=== PATIENT | male | born 1955 | race Caucasian/White ===

== ENCOUNTER 2024-07-09 17:13 | Emergency (ER) | payer MEDICARE, OTHER, SELFPAY ==
[2024-07-09 17:18] VITALS: BP 129/79
[2024-07-09 18:03] LABS: Hematocrit 39.2 % (39.0-52.0); Hemoglobin 13.5 g/dL (13.0-18.0); Mean Corp Hgb Conc. 34.4 g/dL (33.0-37.0); Mean Corpuscular Hgb 32.1 pg (27.0-31.0); Mean Corpuscular Volume 93.3 fL (80.0-94.0); Mean Platelet Volume 8.7 fL (7.4-10.4); Platelet Count 183 10^3/uL (130-400); Red Cell Dist. Width 12.5 % (11.5-14.5); White Blood Cell Count 8.4 10^3/uL (4.8-10.8)
--- NOTE | 2024-07-09 18:06 | ED.GENMED ---
History of Present Illness
<Tahmina Smith PA-C - Last Filed: 07/10/24 10:09>
General
Chief Complaint: Breathing Problem
Source: patient
Exam Limitations: none
Time Seen by Provider: 07/09/24 17:54
Nursing documentation reviewed up to this point in time: agreed with
History of Present Illness
History of Present Illness:
Patient is a 69 year old male with hx HTN, GERD, hypothyroid presenting to the emergency department for evaluation of shortness of breath. Patient reports fatigue, increased work of breathing, cough, low-grade fevers over the past week. Patient
reports mild sputum production of white/yellow in color. No hemoptysis. Also reports hoarseness. Patient denies night sweats, as well. No chest pain.
Patient reports somewhat chronic cough, shortness of breath over the past 1 to 2 years which he has been seen by [facility]. The symptoms have mainly been attributed to hypersensitivity to some fungus. Most recently�he did have a
bronchoscopy 6 days ago due to mild worsening in symptoms. He was started on a course of Augmentin to take over the past 6 days without improvement in symptoms. Negative AFB. Patient on chronic steroids for the past few months - currently tapering
and on low dose. Patient scheduled to f/u new pulmonology/ID at end of July. He did have recent increase in Advair inhaler strength.
No sick contacts.
Past History
<Tahmina Smith PA-C - Last Filed: 07/10/24 10:09>
Past History
ED Past Medical History: Asthma and GERD
ED Past Surgical History: Other
Social History
Tobacco: Non-smoker
Alcohol: Occasional
Drug: None
Personal:
Living: with family
Employment: Employed
Review of Systems
<Tahmina Smith PA-C - Last Filed: 07/10/24 10:09>
Review of Systems
Allergies reviewed?: Yes
All Other Systems: ROS reviewed and negative except as documented in HPI and ROS
Phy Exam
<Tahmina Smith PA-C - Last Filed: 07/10/24 10:09>
Physical Exam
Physical Exam:
Vitals: Patient's vital signs are stable. Afebrile
General: Patient is in no acute distress
Skin: Warm and dry, no rashes or lesions
Head: Normocephalic, atraumatic
Eyes: Sclera nonicteric. EOMs intact. No nystagmus.
Throat: Protecting airway
Neck: Normal ROM, no cervical spine tenderness, no meningismus
Cardiac: Regular rate and rhythm, no murmurs.
Pulm: Normal respiratory effort. O2 saturation 94 on room air. Scattered rhonchi of left lung. No wheezing.
Abdomen: Abdomen soft. No abdominal tenderness.
Extremities: No evidence of cyanosis or edema. Palpable DP pulses. Negative Homans' sign bilaterally
Neuro: AAOx3. Grossly intact.
Psychiatric: Normal affect.
Scores
<Tahmina Smith PA-C - Last Filed: 07/10/24 10:09>
Heart Failure Risk
Heart Failure Risk Score: Not Applicable
Course
<Tahmina Smith PA-C - Last Filed: 07/10/24 10:09>
Orders/Labs/Results
Orders:
Orders
07/09/24 17:21
Electrocardiogram (*1) Urgent
Reason for Study: Shortness of Breath
EKG- Treatment ONCE
07/09/24 17:32
CMP [Comprehensive Metabolic Panel] Urgent
COVID-19 Antigen Urgent
Source: Nasal Swab
Complete Blood Count/With Diff Urgent
Influenza A+B Rapid Molecular Urgent
MELINDA Source: Nasal Swab
Specimen Description:
07/09/24 18:26
Acetaminophen [Tylenol] 650 mg PO NOW STA
Potassium Chloride [KCl] 40 meq PO NOW STA
07/09/24 18:27
CR Chest - 2 Views Urgent
Comment:
Reason For Exam: SOB, cough, fevers
07/09/24 19:[address] [CT Chest With Iv Contrast] Urgent
Comment: recent bronchoscopy
Reason For Exam: SOB, fevers, cough
0.9% Sodium Chloride 1000 ml [Nss] 1,000 ml IV BOLUS
07/09/24 20:53
Dexamethasone Sod Phosphate [Decadron] 10 mg IV NOW STA
Ipratropium/Albuterol Sulfate [Duoneb] 3 ml INH R NOW STA
Abnormal Lab Results
07/09/24
17:32
RBC 4.20 L 10^6/uL
(4.70-6.10)
MCH 32.1 H pg
(27.0-31.0)
Abs Immat Gran (auto) 0.5 H 10^3/uL
(0-0.05)
Absolute Monos (auto) 0.9 H 10^3/uL
(0.1-0.6)
Immature Gran % 6.3 H %
(0-0.5)
Monocytes % 10.8 H %
(1.7-9.3)
Sodium 132 L mmol/L
(135-145)
Potassium 3.0 L mmol/L
(3.5-5.1)
Chloride 95 L mmol/L
(98-107)
Glucose 138 H mg/dl
(70-99)
ALT 76 H U/L
(0-50)
Total Protein 6.1 L g/dl
(6.3-8.2)
07/09/24 17:32
07/09/24 17:32
Vital Signs
Initial and Last Documented VS:
Initial Vital Signs
Temp Pulse Resp BP Pulse Ox
99.0 F 86 18 129/79 96
07/09/24 17:18 07/09/24 17:18 07/09/24 17:18 07/09/24 17:18 07/09/24 17:18
Last Documented Vital Signs
Temp Pulse Resp BP Pulse Ox
98.2 F 73 20 145/78 95
07/09/24 22:50 07/09/24 22:50 07/09/24 22:50 07/09/24 22:50 07/09/24 22:50
<Alan Mccauley MD - Last Filed: 07/10/24 18:59>
Orders/Labs/Results
Orders:
Orders
07/09/24 17:21
Electrocardiogram (*1) Urgent
Reason for Study: Shortness of Breath
EKG- Treatment ONCE
07/09/24 17:32
CMP [Comprehensive Metabolic Panel] Urgent
COVID-19 Antigen Urgent
Source: Nasal Swab
Complete Blood Count/With Diff Urgent
Influenza A+B Rapid Molecular Urgent
MELINDA Source: Nasal Swab
Specimen Description:
07/09/24 18:26
Acetaminophen [Tylenol] 650 mg PO NOW STA
Potassium Chloride [KCl] 40 meq PO NOW STA
07/09/24 18:27
CR Chest - 2 Views Urgent
Comment:
Reason For Exam: SOB, cough, fevers
07/09/24 19:[address] [CT Chest With Iv Contrast] Urgent
Comment: recent bronchoscopy
Reason For Exam: SOB, fevers, cough
0.9% Sodium Chloride 1000 ml [Nss] 1,000 ml IV BOLUS
07/09/24 20:53
Dexamethasone Sod Phosphate [Decadron] 10 mg IV NOW STA
Ipratropium/Albuterol Sulfate [Duoneb] 3 ml INH R NOW STA
Abnormal Lab Results
12/09/24
17:32
RBC 4.20 L 10^6/uL
(4.70-6.10)
MCH 32.1 H pg
(27.0-31.0)
Abs Immat Gran (auto) 0.5 H 10^3/uL
(0-0.05)
Absolute Monos (auto) 0.9 H 10^3/uL
(0.1-0.6)
Immature Gran % 6.3 H %
(0-0.5)
Monocytes % 10.8 H %
(1.7-9.3)
Sodium 132 L mmol/L
(135-145)
Potassium 3.0 L mmol/L
(3.5-5.1)
Chloride 95 L mmol/L
(98-107)
Glucose 138 H mg/dl
(70-99)
ALT 76 H U/L
(0-50)
Total Protein 6.1 L g/dl
(6.3-8.2)
07/09/24 17:32
07/09/24 17:32
Vital Signs
Initial and Last Documented VS:
Initial Vital Signs
Temp Pulse Resp BP Pulse Ox
99.0 F 86 18 129/79 96
07/09/24 17:18 07/09/24 17:18 07/09/24 17:18 07/09/24 17:18 07/09/24 17:18
Last Documented Vital Signs
Temp Pulse Resp BP Pulse Ox
98.2 F 73 20 145/78 95
07/09/24 22:50 07/09/24 22:50 07/09/24 22:50 07/09/24 22:50 07/09/24 22:50
<Tahmina Smith PA-C - Last Filed: 07/10/24 10:09>
MDM/Problems Addressed
Differential Diagnosis Includes:
Not limited to: bronchitis, pneumonia, pneumonitis, asthma exacerbation, pulmonary hemorrhage, doubt PE, etc
MDM/Problems Addressed:
69 year old male presenting with shortness of breath, fatigue, and fevers worsening over the past 6 days following bronchoscopy. Minimal productive cough. No hemoptysis or chest pain. Patient has stable vital signs. Temp of 99.0F. On exam�patient
is relatively well-appearing. O2 saturation is 95% on room air. He has some rhonchi on left side without any wheeze. He is in no apparent respiratory distress. Heart regular rate and rhythm. No lower extremity edema. No clinical evidence of
DVT. Basic labs were initiated in triage and reviewed. No leukocytosis. He was found to be hypokalemic with a potassium of 3.0. I suspect this likely to be secondary to his albuterol. Otherwise no clinically significant abnormalities. Viral
swabs are negative. Differential broad at this time although history of fever and night sweats concern for possible infectious source including bronchitis versus pneumonia. Do not suspect PE. Chest x-ray was obtained without any acute
abnormalities. Given significant pulmonary history and recent bronchoscopy�will obtain CT with IV contrast of chest. Will give Decadron and DuoNeb. Will monitor and reassess.
Case was signed out to attending physician pending CT scan.
Chronic conditions affecting care:
HTN, asthma
<Tahmina Smith PA-C - Last Filed: 07/10/24 10:09>
*Radiology
Radiology exam reviewed: preliminary read by ED provider (No acute abnormalities) and radiology read reviewed
*Pulse Oximetry
Patient hypoxic: no
*EKG
Interpreted by ED Provider?: Yes
EKG Intrepretation Date: 07/09/24
Interpretation: normal
Comparison EKG: no changes
Heart Rate: 77
Rate: normal
Rhythm: sinus
[place]: normal axis
Interval: normal QT interval
QRS Pattern: normal QRS
Ischemia: no ischemia
*Tool And Die Engineer Interpretation
Rate: Tool And Die Engineer- N/A
*Critical Care Note
Total Time (30-74mins, 75-104mins- exclusive of procedures): Not Applicable
ED Attending Note
<Tahmina Smith PA-C - Last Filed: 07/10/24 10:09>
-
Portions of this chart may have been created with voice recognition software.� Occasional wrong word or��sound alike� substitutions may have occurred due to the inherent limitations of voice recognition software.
<Alan Mccauley MD - Last Filed: 07/10/24 18:59>
ED Attending Note
Patient seen and examined by attending physician: Yes
ED Attending Note:
Patient currently being evaluated at [facility] secondary to ongoing shortness of breath over the past year, status post bronchoscopy 1 week ago, currently on Augmentin for possible infection based on sputum culture result,
presents to ED secondary to continued shortness of breath despite treatment. Denies chest pain. Patient reports chills sensation at night, without fever. Denies nausea, vomiting, or diarrhea. Denies loss of appetite. Patient has an upcoming
phone appointment with his ID physician, as well as pulmonology follow-up at the end of this month. Denies back pain. Denies leg pain or swelling.
Physical Exam
General: no apparent distress, not acutely ill. afebrile
Head: nc/at. eomi
Neck: supple. normal range of motion.
Heart: s1/s2 regular rate and rhythm, no murmur. equal radial pulses.
Lungs: no acute respiratory distress. clear bilaterally
Abdomen: normal bowel sounds. not tender.
Neuro: alert and oriented. no focal neurological deficits
Skin: no rash
Psychiatric: well kept. interactive and cooperative
Extremities: no edema. no calf tenderness.
Patient with an unremarkable initial workup, including blood work and chest x-ray. However, patient is complaining of subjective shortness of breath despite normal pulse ox during observation. In light of patient's recent procedure as well as
ongoing symptoms, will obtain CT chest with IV contrast. If unremarkable, patient may benefit from short course of higher dose prednisone
CT chest report reviewed, significant for diffuse scattering opacity, similar to what patient describes as the findings noted on his previous CT chest.
As patient has had extensive workup at [facility] without sig. change in patient's overall presentation, I do not feel that pt will benefit from admission at . As pt remains hemodynamically stable without any sig. respiratory distress, decision made
to discharge home for continual evaluation with his physicians at [facility], including already scheduled phone phone follow up with his ID physician. Pt and spouse expressed understanding at time of discharge.
Discharge Plan
Departure
Patient Disposition: Home (Routine Discharge)
Date of Disposition: 07/09/24
Time of Disposition: 23:05
Patient with high blood pressure during this ER visit?: Yes
Condition: Fair
Discharge Problem:
Dyspnea
Instructions: Shortness of Breath (Dyspnea) (DC)
Prescriptions:
New
prednisone 50 mg tablet
50 mg PO DAILY Qty: 2 0RF
No Action
Marcia
PO DAILY
Omeprazole
PO DAILY
sulfamethoxazole-trimethoprim 800 MG/160 MG tablet
1 tab PO BID Qty: 14 0RF
Referrals:
Dimitri Rodriguez MD [Family Provider] -
Activity Restrictions/Additional Instructions:
As discussed, please continue to follow-up with your frozen food selector as well as infectious disease specialist for further evaluation and treatment. Your prescription has been sent electronically to [facility] pharmacy in [place].
Interventions
Interventions:
*Risk Screen - Suicide Last Done: 07/09/24 17:18
*General Assessment Last Done: 07/09/24 17:18
*Neglect/Abuse Screening Last Done: 07/09/24 20:30
*ED COVID-19 Vaccine History Last Done: 07/09/24 17:18
*Nursing Disposition Last Done: 07/09/24 23:32
ED- Cardiac Assessment Last Done: 07/09/24 20:30
ED- Pulmonary Assessment Last Done: 07/09/24 20:30
Discharge Date and Time
Discharge Date/Time: 07/09/24 23:32
Print Language: [id number]
[2024-07-09 18:13] LABS: ALT (SGPT) 76 U/L (0-50); AST (SGOT) 35 U/L (17-59); Albumin 3.6 g/dl (3.5-5.0); Alkaline Phosphatase 75 U/L (38-126); Blood Urea Nitrogen 11 mg/dl (9-20); Calcium 8.5 mg/dl (8.4-10.2); Carbon Dioxide 28 mmol/L (22-30); Chloride 95 mmol/L (98-107); Glucose 138 mg/dl (70-99); Sodium 132 mmol/L (135-145); Total Bilirubin 0.9 mg/dl (0.2-1.3); Total Protein 6.1 g/dl (6.3-8.2); eGFR > 60.00
[2024-07-09 18:21] LABS: COVID-19 Antigen Negative (Negative)
[2024-07-09 18:22] LABS: % Basophils 0.5 % (0-2); % Eosinophils 1.2 % (0-6); % Immature Granulocytes 6.3 % (0-0.5); % Lymphocytes 20.9 % (20.5-51.1); % Monocytes 10.8 % (1.7-9.3); % Neutrophils 60.3 % (42.2-75.2); Absolute Eosinophils 0.1 10^3/uL (0-0.7); Absolute Immature Granulocytes 0.5 10^3/uL (0-0.05); Absolute Lymphocytes 1.8 10^3/uL (1.2-3.4); Absolute Monocytes 0.9 10^3/uL (0.1-0.6); Absolute Neutrophils 5.1 10^3/uL (1.4-6.5); Nucleated Red Blood Cells % 0 % (-)
[2024-07-09] MEDS: KCL 40 MEQ PO (18:51)
[2024-07-09] MEDS: TYLENOL 650 MG PO (18:51)
[2024-07-09] MEDS: NSS 1000 IV (20:25)
[2024-07-09 20:26] VITALS: BP 130/68
[2024-07-09] MEDS: DUONEB 3 ML INH (21:14)
[2024-07-09] MEDS: DECADRON 10 MG IV (21:14)
[2024-07-09 22:50] VITALS: BP 145/78
== END 2024-07-09 23:32 | disposition home or self-care (01) ==
LOC: EMR 17:13
PROVIDERS: Student in an Organized Health Care Education/Training Program; EMERGENCY PHYSICIAN Emergency Medicine; FAMILY PHYSICIAN Internal Medicine
DX: R06.00 Dyspnea, unspecified (principal); I10 Essential (primary) hypertension; E03.9 Hypothyroidism, unspecified; J45.909 Unspecified asthma, uncomplicated; E87.6 Hypokalemia; K21.9 Gastro-esophageal reflux disease without esophagitis; Z79.52 Long term (current) use of systemic steroids
CPT/HCPCS: 94640; 96374; 96361; 99285; 71046; 71260; 80053; 85025; 87502; 87811; 93005; Q9967